=== PATIENT | male | born 1995 | race Caucasian/White ===

== ENCOUNTER 2016-07-05 18:42 | Emergency (ER) | payer OTHER ==
[~2016-07-05] VITALS: Ht 175.3 cm; Wt 151.5 kg
[2016-07-05 19:05] VITALS: BP 145/85
[2016-07-05] MEDS ORDERED: IBUPROFEN 200 MG TABLET PO ONE (20:00)
[2016-07-05] MEDS ORDERED: IBUPROFEN 200 MG TABLET ONE (20:16)
== END 2016-07-05 20:40 | disposition home or self-care (01) ==
LOC: ED 20:15
DX: S29.012A Strain of muscle and tendon of back wall of thorax, initial encounter (principal); W01.0XXA Fall on same level from slipping, tripping and stumbling without subsequent striking against object, initial encounter; Y93.89 Activity, other specified; Y92.89 Other specified places as the place of occurrence of the external cause; Y99.8 Other external cause status
CPT/HCPCS: 71010; 72072; 99284